=== PATIENT | male | born 1985 ===

== ENCOUNTER 2021-03-10 15:00 | Outpatient (CLI) | payer OTHER ==
--- NOTE | 2021-03-10 15:37 | SLEEP CARE CONSULTATION ---
Information from patient questionnaire entered by Garcia Keys. I have reviewed and concur with the information entered by Garcia Keys. This document represents the service I personally performed and the decisions made by me, Teri No ARNP. History of Present Illness Service Date and Time: 03/10/2021 1500 Reason for Visit: New patient Chief Complaint: reports: Unrefreshed sleep, Snoring, Observed pauses in breathing, Fatigue Date of Onset: 5 + years Usual bedtime: 10 PM to midnight Time it takes to fall asleep: 15 min Snores at night: Yes Observed to quit breathing while asleep: Yes Sleeps alone due to snoring: No Number of times waking at night: Just to turn over Reasons for waking at night: reports: Choking, Gasping for air, Other (Heartburn) Toss, Turn, or Twitch while sleeping: Yes Recalls having dreams: Yes Usually gets out of bed at: 730 AM - 900 AM Feels refreshed in the morning: No Morning headache: Yes (Depends) Sleepy or fatigued during the day: Yes Ever fallen asleep while driving: No (very occasional drowsy driving) Takes day naps: Yes (saturday afternoons, possible 1-2 times a week depends on work schedule) Dreams during day naps: Yes Prior sleep studies: No Additional HPI information: I had the pleasure of seeing CHET MOYA today regarding the possibility of him having a sleep disorder. His current complaints are fatigue, observed pauses in breathing, snoring and unrefreshed sleep. His states that he does not sleep well and snores very loudly. She has seen him pause in breathing during sleep. He states he never wakes up feeling rested and is tired/fatigued during the day. He wakes up 2-3 times a week with headaches that last most of the morning to all day. His can still sleep in same room. She states she has heard him choke and gasp in his sleep. He is here at the urgings of his , who is a nurse, to seek evaluation. He has no family history of sleep apnea. He has a history of heartburn for which he takes Nexium as needed. 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 Patient is and lives in [place]. Have you smoked in the past 12 months: No Cigarettes per day (20/pack): 10 Years of smokin Quit date: 2010 Smoking Pack Years: 4.0 Alcohol use: No Caffeine use: Yes Caffeine amount and frequency: 4 pots of coffee a week; energy drinks once in a while Family History Family history of sleep disordered breathing: No Allergies and Home Medications Drug allergies reviewed: Yes (NKDA) Home medication list reviewed: Yes Allergy and home medication list: Nexium, prn Review of Systems Weight gain over past 5 years: 40 Cardiovascular: denies: high blood pressure Respiratory: reports: shortness of breath Gastrointestinal: reports: heartburn, difficulty swallowing Neurological: reports: headaches. denies: head trauma Psychiatric: denies: anxiety, depression Ear/Nose/Throat: reports: dry mouth/throat (usually when he wakes up). denies: injury to nose, tonsillectomy, wisdom teeth removed Endocrine: reports: sluggishness (tired), too hot or cold, unexplained weakness Immunologic: denies: allergies to food or environment Physical Exam Blood Pressure: 128/98 Cuff size: long Heart Rate: 86 O2 Saturation: 96 Height: 5 ft 7.5 in Weight: 256 lb Body Mass Index: 39.4 BMI Classification: Obese Neck circumference: 17 (inches) Mouth and throat: narrow oropharynx Soft palate: long Hard palate: normal Uvula: normal Uvula visualization: 50% Mallampati Class II Tongue: enlarged in size with teeth connell on lateral edges Tonsils: small Chin and jaw: normal size and position Neck: normal w/o lymphadenopathy or thyromegaly Heart: regular rate and rhythm Lungs: clear bilaterally Impression and Plan 1. Suspected Obstructive Sleep Apnea-Hypopnea Syndrome, as suggested by a history of loud and irregular snoring, observed cessation of breath while asleep, gasping or choking in sleep, morning headache, and unrefreshed sleep. Narrow oropharynx and obesity are common predisposing factors for obstructive sleep apnea-hypopnea syndrome. I recommend proceeding to polysomnography to confirm the diagnosis and to assess severity. If the patient has significant sleep disordered breathing, a manual CPAP titration study will also be performed to find the optimal treatment pressure. I informed the patient of what the sleep studies involve and after some discussion, obtained agreement to proceed. The pathophysiology of obstructive sleep apnea-hypopnea syndrome was discussed with the patient and health risks of cardiovascular and cerebrovascular disease if not treated. Risks of drowsy driving discussed in detail and patient advised to avoid long distance driving and to loop puller at the first sign of drowsiness. Patient agreed to plan. * Schedule polysomnography +- manual CPAP titration study and return in 1-2 weeks after the study to discuss result and initiate therapy. * Avoid long distance driving or driving when feeling sleepy. * Avoid alcohol, sedative and muscle relaxant around bedtime. * Attempt to lose weight. * Review instructions provided by trained office staff on how to prepare for the sleep study. * Return for follow-up after sleep study completed. Counseling Topics: Weight loss health impact Visit Type: In Office Other Participants: Spouse/Significant Other Time Spent with Patient (minutes): 30 Provider Statement: I spent 100% of the Face to Face Visit with the patient with greater than 50% spent counseling the patient and coordination of care.
[2021-03-10 15:38] VITALS: BP 128/98
== END 2021-03-10 15:01 | disposition home or self-care (01) ==
LOC: SC 15:00
PROVIDERS: ATTEND Nurse Practitioner Family
DX: R06.83 Snoring (principal); R51.9 Headache, unspecified; G47.8 Other sleep disorders; R53.83 Other fatigue; R06.81 Apnea, not elsewhere classified; E66.9 Obesity, unspecified; Z68.39 Body mass index [BMI] 39.0-39.9, adult
CPT/HCPCS: 99203; 99212

== ENCOUNTER 2021-03-20 09:53 | Outpatient (CLI) | payer OTHER | END 2021-03-20 09:54 | disposition home or self-care (01) | LOC: SC 09:53 | PROVIDERS: ATTEND Nurse Practitioner Family | DX: G47.33 Obstructive sleep apnea (adult) (pediatric) (principal); E66.9 Obesity, unspecified; Z68.39 Body mass index [BMI] 39.0-39.9, adult | CPT/HCPCS: 95806 ==

== ENCOUNTER 2021-03-23 08:18 | Outpatient (CLI) | payer OTHER ==
--- NOTE | 2021-03-23 09:01 | SLEEP CARE CONSULTATION ---
Information from patient questionnaire entered by Nmico Fernandez. I have reviewed and concur with the information entered by Nimco Fernandez. This document represents the service I personally performed and the decisions made by , Teri No ARNP. History of Present Illness Service Date and Time: 03/23/2021817 Initial [place] Sleepiness Scale score: 7 (in 2020) Current [place] Sleepiness Scale score: 3 Additional HPI information: CHET MOYA returns for follow up and results of the recently performed home sleep study. I explained the pathophysiology behind obstructive sleep apnea. We then spent quite a bit of time discussing different treatment options. For mild obstructive sleep apnea, surgery and oral appliance are alternatives to nasal CPAP therapy but in moderate or severe cases, nasal CPAP is the most effective and reliable treatment. Because apnea is primarily in supine position, then positional management therapy could be effective. Methods discussed such as positioning with pillows to prevent supine sleep. I reviewed the impact of weight changes on sleep apnea and strongly recommended losing weight. I explained how CPAP machine works with sample devices [employer]pir[employer].Mes Dreamstation and [employer] [id number] and what to expect when using the machine. Using CPAP every night in order to get used to it was emphasized. [facility] patient education PAP tips and Non Pap treatment pamphlets reviewed and given to patient. Patient was cautioned about risks of drowsy driving until sleepiness symptoms resolve. Sleep Study - Results Type of Sleep Study: Home sleep study Prior sleep studies: No Polysomnography/Home Sleep Study results: The quality of the study is good. The length of the study is adequate (> 240 minutes). Please also see the tabulated and graphic data. 1. Obstructive Sleep Apnea-Hypopnea (ICD-10 G47.33), mild, with an AHI of 14.8 /hr and gasper SaO2 of 82%. During the study, the patient had 62 apneas (62 obstructive, 0 central, 0 mixed) and 66 hypopneas. The longest episode lasted 62.5 seconds. The respiratory events occurred more frequently during supine sleep (supine AHI was 18.9 and non-supine, 12.12). 2. Hypoxemia (ICD-10 R09.02), mild, with the lowest oxygen saturation of 82 % and 10.5 minutes with SaO2 under 90%. Baseline oxygen saturation was normal (Average oxygen saturation was 93%). Allergies and Home Medications Home medication list reviewed: Yes (no changes) Review of Systems Review of systems same as previous: Yes (no changes) Physical Exam Heart Rate: 75 O2 Saturation: 98 Height: 5 ft 7.5 in Weight: 254 lb Body Mass Index: 39.2 BMI Classification: Obese Impression and Plan 1. Obstructive Sleep Apnea-Hypopnea Syndrome, moderate, with lowest oxygen saturation of 82%. Obviously this is the cause of the patients symptoms of unrefreshed sleep, and excessive daytime sleepiness. Positive pressure therapy could benefit his overall health and reduce risks of cardiovascular and cerebrovascular adverse events. Discussed at length oral appliance therapy, surgery and CPAP therapy options. Compliance guidelines also reviewed. Because the apnea is more severe supine, I instructed to avoid sleeping supine using pillow positioning. Patient requested copy of sleep study and chart notes to take home and discuss with before making decision on therapy. He will call office with choice. * Patient to call with choice of therapy * Attempt to lose weight. * Avoid supine sleep * The patient is again cautioned about driving until sleepiness completely resolves. * Follow depends on choice of therapy, 1-3 months. Counseling Topics: Weight loss health impact Visit Type: In Office Time Spent with Patient (minutes): 16 Provider Statement: I spent 100% of the Face to Face Visit with the patient with greater than 50% spent counseling the patient and coordination of care.
== END 2021-03-23 08:19 | disposition home or self-care (01) ==
LOC: SC 08:18
PROVIDERS: ATTEND Nurse Practitioner Family
DX: G47.33 Obstructive sleep apnea (adult) (pediatric) (principal); E66.9 Obesity, unspecified; Z68.39 Body mass index [BMI] 39.0-39.9, adult
CPT/HCPCS: 99212

== ENCOUNTER 2021-09-28 09:30 | Outpatient (CLI) | payer OTHER | END 2021-09-28 23:59 | disposition home or self-care (01) | LOC: LAB.N 09:30 | PROVIDERS: ATTEND Physician Assistant | DX: U07.1 COVID-19 (principal) ==

== ENCOUNTER 2022-10-16 11:59 | Outpatient (CLI) | payer OTHER ==
--- NOTE | 2022-10-16 14:35 | XRAY Report ---
PROCEDURE: Chest 2 View X-Ray INDICATIONS: Chest pain. TECHNIQUE: 2 views of the chest were acquired. COMPARISON: None FINDINGS: Surgical changes and devices: None. Lungs and pleura: No pleural effusions or pneumothorax. Lungs are clear. Mediastinum: Mediastinal contours are normal. Heart size is normal. Bones and chest wall: No suspicious bony abnormalities. Soft tissues appear unremarkable. IMPRESSION: No acute cardiopulmonary disease process. Reviewed by: Maria Teresa French MD, PhD on 10/16/2022 2:34 PM PST Approved by: Maria Teresa French MD, PhD on 10/16/2022 2:34 PM PST Station ID: [id number]
== END 2022-10-16 12:00 | disposition home or self-care (01) ==
LOC: DI 11:59
PROVIDERS: ATTEND Student in an Organized Health Care Education/Training Program
DX: R07.9 Chest pain, unspecified (principal)